=== PATIENT | male | born 1960 | race Caucasian/White ===

== ENCOUNTER 2018-10-16 08:31 | Outpatient (REF) | payer OTHER, SELFPAY ==
[2018-10-16 18:55] LABS: Anion Gap 9.7 mmol/L (3-11); BUN 22 mg/dL (7-18); CO2 25.3 mmol/L (21.0-32.0); CREATININE 1.11 mg/dL (0.70-1.30); Calcium 8.7 mg/dL (8.5-10.1); Calculated LDL 96; Chloride 108 mmol/L (98-107); Cholesterol 154 mg/dL (50-200); Glucose 96 mg/dL (70-100); HDL Cholesterol 40 mg/dL (40-60); Potassium 4.3 mmol/L (3.5-5.1); Sodium 143 mmol/L (136-145); Triglyceride 92 mg/dL (30-150)
== END 2018-10-16 08:51 ==
LOC: NCHCN 08:31
PROVIDERS: PCP Physician Assistant Medical; Visit Provider Physician Assistant Medical
DX: Z00.00 Encounter for general adult medical examination without abnormal findings (principal); Z13.6 Encounter for screening for cardiovascular disorders; Z13.1 Encounter for screening for diabetes mellitus
CPT/HCPCS: 80048; 80061; 83721

== ENCOUNTER 2018-11-12 07:08 | Day surgery (SDC) | payer OTHER, SELFPAY ==
--- NOTE | 2018-11-12 06:55 | COLE_ITS ---
Date of service: 11/12/18 Time of Service: : Colonoscopy Report Date of procedure: 11/12/18 Pre-op diagnosis general: Colon Cancer Screening Post-op diagnosis procedure note: same Procedure: Colonoscopy Surgeon: Etelvina Garcia Anesthesia proc note operative: other (General/ ASA 2/Fernando Hartley, [place]) Estimated blood loss (mL): 5 Pathology: none sent Complications: None Disposition: same day Indications: 58 y/o male presents for his first colonoscopy screening pre-op. He had a colonoscopy 20+ years ago in [place], [place] which he reports was unremarkable. He reports a family history of colon cancer on his maternal side. He denies any changes in bowel habits including bloody or black tarry stools, abdominal pain, diarrhea or constipation. Risks, benefits and complications have been reviewed. Complications include but are not limited to bleeding, pain, perforation, missed small lesion/polyp, sore throat, aspiration and adverse reaction to the medications. Questions were entertained and answered to their satisfaction and they wished to proceed. No guarantees were given or implied. Prep: Miralax/Dulcolax Procedure Start Time: : Procedure End Time: :54 Retraction Time: 20 minutes Findings: Normal Colonoscopy Procedure Description: After informed consent was obtained the patient was taken to the procedure room and placed in a left decubitous position. Monitors were applied and a time out was done. The patients name, date of , procedure, allergies to medications and metal in their body was reviewed. The patient was then sedated. Once sedated and comfortable a rectal exam was done. External exam was normal. Internal exam revealed a normal sphincter tone and no palpable masses. The prostate felt normal. The scope was then introduced and retro-flexed. No internal hemorrhoids were identified. The scope was then advanced to the cecum without difficulty. The TI and appendiceal orifice were identified. The prep was adequate. The scope was then slowly retracted over 20 minutes back into the rectum. There were no polyps and no diverticula. The scope was removed and the patient was woken up and taken back to Same day surgery in stable condition. The patient tolerated the procedure well and there were no immediate complications. Follow up: The patient should follow up in 10 years unless they develop changes in bowel habits or other new gastrointestinal complaints.
--- NOTE | 2018-11-12 06:55 | W.PM.DSUDISC ---
Discharge Plan Disposition Patient Disposition: HOME Condition: Good Discharge Details Reason For Visit: Colon Cancer screening Attending Provider: Etelvina Garcia Primary Care Provider: Mark Hobbs V Home Meds and New Rx's Prescriptions: Discontinued polyethylene glycol 3350 17 gram/dose powder 238 g PO ONCE Qty: 238 RF: 0 bisacodyl [Dulcolax (bisacodyl)] 5 mg tablet,delayed release (DR/EC) 5 mg PO ONCE Qty: 4 RF: 0 No Action omega 2-rse-uha-fish oil [Fish Oil] 1,000 mg (120 mg-180 mg) Capsule 1 cap PO DAILY RF: 0 Centrum Silver Men 300-600-300 mcg Tablet 1 tab PO DAILY RF: 0 Discharge Instructions Instructions: Colonoscopy (DC) Additional Instructions: Findings: Normal Follow up: 10 years Please call if you develop: fevers >101.5 Nausea or Vomiting Abdominal pain that is not transient DAY SURGERY UNIT POST COLONOSCOPY INSTRUCTIONS 1. Because there will be medication in your system for the next 24 hours, you may feel a little sleepy. Your coordination will be affected. Therefore: a. Do not drive or operate dangerous equipment for 24 hours. b. Do not drink alcohol beverages for 24 hours (not even beer). c. Plan to go home and rest for the day. 2. Generally there are no restrictions on your activity after a day or so has gone by, but you may feel a bit fatigued for a few days. 3 After you arrive home you may have a light meal and return to a normal diet as you can tolerate it without feeling sick to your stomach. 4. After surgery, you may feel pain or discomfort. This should be only transient, but if it persists please contact your doctor. 5. If there are any questions regarding the findings of your procedure, please feel free to contact your doctor. 6. If you are unable to contact your doctor with a problem, contact the hospital at [phone]. 7. Continue all your regular medications unless directed otherwise. I understand the above instructions and have no questions. Signature of Patient or Responsible Adult Escort Date/Time Name of Responsible Adult Escort Signature of Nurse Date/Time Activity:: Activity as Tolerated Diet:: As Tolerated Discharge Orders Discharge Orders: Discharge Order (Routine); Ordered 11/12/18 Ordered By: Etelvina Garcia DS: Diagnosis Discharge Diagnosis (1) S/P colonoscopy: Status: Acute
[2018-11-12 07:21] VITALS: BP 117/78; PULSE 67; RESP 16; TEMP 35.6; O2SAT 97
[2018-11-12] MEDS: Lactated Ringers 1,000 ML 80 ML IV (07:46)
[2018-11-12 09:40] VITALS: BP 100/64; PULSE 62; RESP 18; TEMP 36; O2SAT 94
== END 2018-11-12 09:51 | disposition home or self-care (01) ==
LOC: SUR 07:09
PROVIDERS: PCP Physician Assistant Medical; Visit Provider Surgery
PROC: 0DJD8ZZ Inspection of Lower Intestinal Tract, Via Natural or Artificial Opening Endoscopic (ICD-10-PCS; CPT 45378; principal; 2018-11-12 08:30)
DX: Z12.11 Encounter for screening for malignant neoplasm of colon (principal); Z80.0 Family history of malignant neoplasm of digestive organs
CPT/HCPCS: 45378

== ENCOUNTER 2021-05-17 16:03 | Outpatient (CLI) | payer OTHER, SELFPAY ==
--- NOTE | 2021-05-17 | DI.RAD_ITS ---
Exam(s) XR SHOULDER RT COMPLETE 2+V EXAM: XR SHOULDER RT COMPLETE 2+V CLINICAL HISTORY: PAIN RT SHOULDER [id number]. TECHNIQUE: 2D digital imaging was performed. COMPARISON: No exams were available for comparison FINDINGS: BONES: No acute fracture is present. No bony destructive lesion is seen. JOINTS: No dislocation present. Mild spurring at the undersurface of the acromion. Glenohumeral angelia nt space is well maintained. Minimal AC joint spurring. SOFT TISSUE: Normal. IMPRESSION: Mild degenerative changes. DATA REPOSITORY: RADIATION DOSE DELIVERED:
== END 2021-05-17 16:23 ==
PROVIDERS: Visit Provider Nurse Practitioner Family
DX: M25.511 Pain in right shoulder (principal)
CPT/HCPCS: 73030

== ENCOUNTER → 2023-05-11 01:04 | Outpatient (CLI) | payer OTHER, SELFPAY ==
--- NOTE | 2023-05-11 | ETT_ITS ---
APPROVED REPORT Exam: Exercise Treadmill Patient Location: Out-Patient Room/Bed: Stress Nurse: Emiliana Degroot RN Ordering Provider:MERYL BACH, Contact Number: BMI: 37.11 Baseline Rhythm: Sinus Rhythm Indications: SOB Medical History Medical History: No significant medical history Cardiac Medications: B complex Allergies: NKDA Cardiac Risk Factors: Family hx, obesity Previous Cardiac Procedures: None Pretest Chest Pain Characteristics: None Exercise History: Indeterminate Physical Disabilities: None Lung Sounds: Clear to auscultation Heart Sounds: Regular Stress Test Details Test: Exercise stress testing was performed using a Dwight protocol. Rest Stress HR Resting HR Supine: 63 bpm Max Heart Rate (APMHR): 158 bpm Resting HR Standin bpm Target HR (85% APMHR): 134 bpm Max HR Achieved: 154 bpm % of APMHR: 97 Recovery HR: 88 bpm HR response to stress: Normal HR response to stress BP Resting BP Supine: 118/82 mmHg Resting BP Standin/82 mmHg Max BP: 178/78 mmHg Recovery BP: 118/82 mmHg BP response to stress: Normal blood pressure response to stress. ECG Resting ECG: Sinus Rhythm Ectopy: None Stress ECG: Sinus Tachycardia ST Change: No significant ST segment changes noted Arrhythmia: None Recovery ECG: Sinus Rhythm Recovery ST Change: No significant ST segment changes noted Recovery Arrhythmia: None Clinical Reason for Termination: Dyspnea, Target HR Achieved Stress Symptoms: Dyspnea, General Fatigue Exercise duration: 04 min20 sec Highest Stage Reached: Stage 2: 2.5 mph at 12% grade. Exercise capacity: 6.23 METs Angina Score: None Acharya Treadmill Score: 3.1 Rate Pressure Product: [id number] Stress ECG Conclusion 1. 1.Normal clinical response 2. 2.Normal BP response 3. 3.Normal ECG response without abnormal ST changes 4. 4.Negative for inducible ischemia. Acharya Treadmill Score is 3.1 which is Moderate risk. Stress Test Summary STAGE Time (mins) Speed (mph) Grade (%) HR BP SpO2 SYMPTOMS METS Supine 63 118/82 98 Standing 80 118/82 1 3 1.7 10 143 Moderate SOB 4.5 3 min recovery 130 178/78 6 min recovery 70 150/82 98 9 min recovery 88 118/82 96 SOB resolved
== END ==
PROVIDERS: Visit Provider Nurse Practitioner
DX: R06.02 Shortness of breath (principal)
CPT/HCPCS: 93017

== ENCOUNTER 2024-12-20 15:04 | Outpatient (CLI) | payer OTHER, SELFPAY ==
[2024-12-23 11:24] LABS: Lyme Ab w Rflx to Lyme Confirm Negative (Negative)
== END 2024-12-20 15:05 | disposition home or self-care (01) ==
LOC: LBO 15:05
PROVIDERS: Visit Provider Physician Assistant Medical
DX: R21 Rash and other nonspecific skin eruption (principal)
CPT/HCPCS: 36415; 86618